=== PATIENT | male | born 1980 | race Caucasian/White ===

== ENCOUNTER 2023-05-31 11:50 | Outpatient (AMB) | payer BC, MEDICARE, SELFPAY ==
--- NOTE | 2023-05-31 11:53 | A.OFFVIS_ITS ---
Intake Vital Signs 05/31/23 11:57 Height 6 ft 2 in Weight 220 lb BMI 28.2 Intake Visit Reasons: N/P left hip pain/ medication refill Intake Note: Brooks is a 43 year old male who presents today with spouse Becki as a new patient with complaints of left hip pain and left arm contracture. He was previously recieving botox injections but these were much too painful so they discontinued this. However he has been taking Tizanidine and dantrolene. He has found the dantrolene to be very helpful. Hx of left hip surgery, there was a screw placed in the head of the femur as it detatched as a child. Allergies No Known Allergies Allergy (Verified 05/31/23 11:59) HPI HPI Comments History of Present Illness Details This is a patient I have seen under [facility], last available note dated 03/24/2022. History of stroke 9 years ago with resulting right hemiparesis, spasticity and aphasia. Had multiple craniotomies after. Developed seizures 6 months after last craniotomy. Being managed by a [facility] for Neurology for seizures. No seizures reported since then. Expressive aphasia. Also history of DVT about 2 years ago right lower extremity, reportedly evaluate d at [facility], but not put on long-term blood thinners. There was a question of history of gout as well. He had complaints of left hip/thigh/calf pain. Past history of left hip surgery when he was 10 years old. Hip x-rays done reported screws were in place, old healed fracture. Lumbar x-ray showed decreased disc spaces. Patient did not want any injection. I believe referred him to Orthopedics at that time. He was also maintained on dantrolene 25 mg b.i.d. and tizanidine 4 mg t.i.d. and 8 mg q.h.s. for pain and spasticity. They are here today requesting for refills. Denies side effects. Last LFTs checked 2021 were within normal. Expressive aphasia. Diabetic. Here with . No folow up with [facility] since I left. Last time taking medications Tizanidine (was only taking 4mg in AM and 8mg qhs) was April when he ran out. Still has Dantolene. No side effects. Last March, PCP checked liver and kidney function and within normal. It was helping the right arm from the spasticity. He used to get Botox which was too painful for him, therefore switched to medication instead. Left hip pain - shows me lateral side, denies groin pain, denies back pain. Per , they were told that ball of hip popped off while growing up , 12 years old, and that is why the surgery was for. [facility] Medical History (Updated 05/31/23 @ 12:48 by Kamryn Gibson MD) Chronic hip pain Spastic hemiparesis affecting dominant side Surgical History (Updated 05/31/23 @ 12:02 by Nelida David CMA) H/O craniotomy Review of Systems Const All systems reviewed & are unremarkable except as noted in HPI and below Physical Exam Vital Signs: BMI result Body Mass Index 28.2 Patient awake, alert, nods to answer questions. He has expressive aphasia. He follows commands consistently. Right upper extremity 2/5 proximal, 1/5 distal. Igor 3 on right finger flexors and 2 for the rest of the right upper extremity. Negative Carolyn sign. Tender left lateral hip near GT. No signs of redness or swelling on previous surgical scar. No groin tenderness. No SI joint tenderness. Results Reviewed Results Reviewed: I reviewed records from the following: Notes from [facility] Assessment & Plan Assessment & Plan (1) Spastic hemiparesis affecting dominant side: Code(s): G81.10 - Spastic hemiplegia affecting unspecified side Plan: Reasonable to continue him on oral anti spasticity medications. I do discouraged continuation of dantrolene because of hepatotoxic side effects. We agreed to put him back on tizanidine, 4 mg b.i.d. and 8 mg q.h.s.. We agreed on gradually weaning him off dantrolene, down to 25 mg daily for 2 weeks and then 25 mg every other day until done. Giving him only 30 capsules of dantrolene. He does not want any injections including Botox for right upper extremity. Considering everything, he still has functional gait. (2) Chronic hip pain: Code(s): M25.559 - Pain in unspecified hip; G89.29 - Other chronic pain Qualifiers: Laterality: left Qualified Code(s): M25.552 - Pain in left hip; G89.29 - Other chronic pain Plan: Will repeat x-rays today. I can discuss with my orthopedic colleagues whether there is any surgical option for him. Although patient is adamant about not wanting any surgery at all. It is understandable since the left side is his good side and is probably not going to do well in rehab post any surgery at all. He can try Lidoderm patches for pain management. Plan Assessment and plan discussed with patient, and patient was agreeable. All questions were answered thoroughly. Follow-up 3-4 months. Kamryn Gibson MD, CHENG Board Certified, [place] Board of Physical Medicine and Rehabilitation (ABPMR) Board Certified, [place] Board of Electrodiagnostic Medicine (ABEM) Orders: Orders XR hip LT min 2V Today G89.29 - Other chronic pain, M25.559 - Pain in unspecified hip Medications: New tizanidine 4mg twice a day and 8mg at night (total of 4 tablet per day) 4 mg PO BEDTIME PRN 120 tabs 3RF muscle spasticity MDD 16mg G81.10 - Spastic hemiplegia affecting unspecified side dantrolene 25mg daily for 2 weeks, wean down to 25mg every other day until done 25 mg PO DAILY 28 days 28 caps 0RF spasticity MDD 25mg G81.10 - Spastic hemiplegia affecting unspecified side lidocaine 5% (Lidoderm) leave on most painful area for up to 12 hrs on, 12 hours off, 1-3 patches at a time 3 patches topical DAILY 30 ea 3RF Coding Level of Care Code Est Pt Level 4 (33824) Diagnoses Spastic hemiparesis affecting dominant side G81.10 Chronic left hip pain M25.552; G89.29 Laterality: left Comment This is a new patient in our the office but I have seen the patient in [place]
[2023-05-31 11:57] VITALS: BMI 28.2
== END 2023-05-31 13:14 | disposition home or self-care (01) ==
PROVIDERS: Visit Provider Physical Medicine & Rehabilitation
DX: G81.10 Spastic hemiplegia affecting unspecified side (principal); M25.552 Pain in left hip; G89.29 Other chronic pain
CPT/HCPCS: 99214

== ENCOUNTER 2023-05-31 11:50 | Outpatient (REF) | payer BC, MEDICARE, SELFPAY ==
--- NOTE | ~2023-05-31 | XR_ITS ---
EXAMINATION: XR HIP, LEFT CLINICAL INFORMATION: Left hip pain. Had surgery at least 10 years ago. COMPARISON: 12/30/2021. TECHNIQUE: Two views of the left hip. FINDINGS: Redemonstration of a single cannulated screw traversing the left femoral neck hardware appears intact. Redemonstration of cortical irregularity of the femoral neck characteristic of old healed fracture. The left femoral head is well seated within the acetabulum. Redemonstration of surgical clip overlying the medial aspect of the acetabulum. Mild degenerative changes left hip with mild joint space narrowing and lateral acetabular hypertrophic change. XR/XR hip LT min 2V IMPRESSION: Postsurgical changes left hip with mild degenerative changes. Additional imaging with CT scan or MRI should be considered for better visualization as these modalities are much more sensitive for detection of fracture or other underlying pathology.
== END 2023-05-31 11:51 | disposition home or self-care (01) ==
LOC: HO.HOSX 11:50
PROVIDERS: Visit Provider Physical Medicine & Rehabilitation
DX: M25.552 Pain in left hip (principal); G81.11 Spastic hemiplegia affecting right dominant side; G89.29 Other chronic pain
CPT/HCPCS: 73502

== ENCOUNTER 2023-08-01 10:10 | Outpatient (AMB) | payer BC, MEDICARE, SELFPAY ==
--- NOTE | 2023-08-01 10:17 | A.OFFVIS_ITS ---
Intake Vital Signs 08/01/23 10:31 Height 6 ft 2 in Weight 220 lb BMI 28.2 Intake Visit Reasons: OV- left hip pain-Follow up Intake Note: Brooks 43 yr old male p resents today for a follow up visit for his left hip pain. Patient reports he is better today however he has not tried the lido patches due to insurance inconveniences. Allergies No Known Allergies Allergy (Verified 08/01/23 10:25) HPI HPI Comments History of Present Illness Details This is a patient I have seen under [facility], last available note dated 03/24/2022. History of stroke 9 years ago with resulting right hemiparesis, spasticity and aphasia. Had multiple craniotomies after. Developed seizures 6 months after last craniotomy. Being managed by a her for Neurology for seizures. No seizures reported since then. Expressive aphasia. Also history of DVT about 2 years ago right lower extremity, reportedly evaluated at [facility], but not put on long-term blood thinners. There was a question of history of gout as well. He had complaints of left hip/thigh/calf pain. Past history of left hip surgery when he was 10 years old. Hip x-rays done reported screws were in place, old healed fracture. Lumbar x-ray showed decreased disc spaces. Patient did not want any injection. I believe referred him to Orthopedics at that time. He was also maintained on dantrolene 25 mg b.i.d. and tizanidine 4 mg t.i.d. and 8 mg q.h.s. for pain and spasticity. They are here today requesting for refills. Denies side effects. Last LFTs checked 2021 were within normal. Expressive aphasia. Diabetic. Here with . No folow up with [facility] since I left. Left hip pain - shows me lateral side, denies groin pain, denies back pain. Per , they were told that ball of hip popped off while growing up , 12 years old, and that is why the surgery was for. Since I saw him last here in [place], he has changed medication as directed to tizanidine only, no more dantrolene. Says feel better on right tightness. Left hip is about the same. They were not able to get lidoderm patch from pharmacy for possibly prior auth issue. [facility] Medical History (Updated 05/31/23 @ 12:48 by Kamryn Gibson MD) Chronic hip pain Spastic hemiparesis affecting dominant side Surgical History (Updated 05/31/23 @ 12:02 by Nelida David CMA) H/O craniotomy Physical Exam Vital Signs: BMI result Body Mass Index 28.2 Patient awake, alert, nods to answer questions. He has expressive aphasia. He follows commands consistently. Right upper extremity 2/5 proximal, 1/5 distal. Igor 3 on right finger flexors and 2 for the rest of the right upper extremity. Negative Carolyn sign. Tender left lateral hip near GT. No signs of redness or swelling on previous surgical scar. No groin tenderness. No SI joint tenderness. On gait, tight on knee flexion and dorsiflexion. Results Reviewed Results Reviewed: Date of Service: 05/31/23 Procedure(s): XR hip LT min 2V Accession Number(s): [id number] cc: Physician,Unknown ; Kamryn Bobo~ EXAMINATION: XR HIP, LEFT CLINICAL INFORMATION: Left hip pain. Had surgery at least 10 years ago. COMPARISON: 12/30/2021. TECHNIQUE: Two views of the left hip. FINDINGS: Redemonstration of a single cannulated screw traversing the left femoral neck hardware appears intact. Redemonstration of cortical irregularity of the femoral neck characteristic of old healed fracture. The left femoral head is well seated within the acetabulum. Redemonstration of surgical clip overlying the medial aspect of the acetabulum. Mild degenerative changes left hip with mild joint space narrowing and lateral acetabular hypertrophic change. XR/XR hip LT min 2V IMPRESSION: Postsurgical changes left hip with mild degenerative changes. Additional imaging with CT scan or MRI should be considered for better visualization as these modalities are much more sensitive for detection of fracture or other underlying pathology. Assessment & Plan Assessment & Plan (1) Spastic hemiparesis affecting dominant side: Code(s): G81.10 - Spastic hemiplegia affecting unspecified side Plan: He has discontinued safely from dantrolene. Now on tizanidine 4mg BID and 8mg qhs without side effects. Says better than last time for stiffness. Still quite spastic though. asked about compounded topicals. We can trial combination of baclofen and cyclobenzarine topical. Prescription will be send to compounding pharmacy. He does not want any injections including Botox for right upper extremity. Considering everything, he still has functional gait. (2) Chronic hip pain: Code(s): M25.559 - Pain in unspecified hip; G89.29 - Other chronic pain Qualifiers: Laterality: left Qualified Code(s): M25.552 - Pain in left hip; G89.29 - Other chronic pain Plan: We looked at films together. Saw the screw is in place. There is no hip joint loss but smooth articular surface in my opinion. He says pain is about the same as last visit. thinks because he puts so much pressure on this good side . Brooks is very adamant about not having further surgery or even further imaging. We did agree, in lieu of MRI or CT, that we will do serial plain xrays every 6 months to see if any movement or change. It was hard to convince Devonte but he agrees to do xray on next follow up in 4 months. Lidoderm patch needs prior auth and we will work on this. Hopefully we can get this approved. Plan Assessment and plan discussed with patient, and patient was agreeable. All questions were answered thoroughly. Follow-up 4 months. Kamryn Gibson MD, CHENG Board Certified, [place] Board of Physical Medicine and Rehabilitation (ABPMR) Board Certified, [place] Board of Electrodiagnostic Medicine (ABEM) Coding Level of Care Code Est Pt Level 4 (71147) Diagnoses Spastic hemiparesis affecting dominant side G81.10 Chronic left hip pain M25.552; G89.29 Laterality: left
[2023-08-01 10:31] VITALS: BMI 28.2
== END 2023-08-01 10:57 | disposition home or self-care (01) ==
PROVIDERS: Visit Provider Physical Medicine & Rehabilitation
DX: G81.10 Spastic hemiplegia affecting unspecified side (principal); M25.552 Pain in left hip; G89.29 Other chronic pain
CPT/HCPCS: 99214

== ENCOUNTER → 2023-08-01 10:10 | Outpatient (BNVA) | payer BC, MEDICARE, SELFPAY | PROVIDERS: Visit Provider Physical Medicine & Rehabilitation ==

== ENCOUNTER 2024-10-30 08:33 | Outpatient (REF) | payer OTHER, MEDICARE, SELFPAY ==
--- NOTE | ~2024-10-30 | XR_ITS ---
EXAMINATION: XR HIP 2 OR MORE VIEWS LEFT HISTORY: M16.12 - Unilateral primary osteoarthritis, left hip COMPARISON: Comparison is made with the prior examination dated 05/31/2023. FINDINGS: Two views of the left hip are submitted. Osseous mineralization is normal. A single screw is again noted and femoral neck. There is no acute fracture or dislocation. Minimal joint space narrowing is unchanged. The soft tissues are unremarkable. XR/XR hip LT min 2V IMPRESSION: Minimal joint space narrowing. Electronically signed by: Jae Laurent MD 10/30/2024 03:17 PM EDT
== END 2024-10-30 08:34 | disposition home or self-care (01) ==
LOC: HO.HOSX 08:33
PROVIDERS: Visit Provider Physical Medicine & Rehabilitation
DX: M16.12 Unilateral primary osteoarthritis, left hip (principal); G89.29 Other chronic pain; G81.11 Spastic hemiplegia affecting right dominant side
CPT/HCPCS: 73502

== ENCOUNTER 2024-10-30 08:33 | Outpatient (AMB) | payer OTHER, MEDICARE, SELFPAY ==
--- NOTE | 2024-10-30 08:36 | A.OFFVIS_ITS ---
Vital Signs 10/30/24 08:59 Height 6 ft 2 in Weight 207 lb BMI 26.6 Intake Visit Reasons: O/V rt side Spastic hemiparesis Intake Note: Brooks is a 44 year old male who presents today with his for a follow up of his right side spastic hemiparesis and left hip pain. States since last visit he has tried aspen cream but did not feel much difference. states he is cur rently slowly weaning off his divaloproex and will be starting lamotrigine (managed by [facility], for seizure prophylaxis). EEG did not show seizure activity. New PCP Dr. Cooley, [facility]. Allergies No Known Allergies Allergy (Verified 10/30/24 08:58) HPI Comments Details: This is a patient I have seen under [facility], last available note dated 03/24/2022. History of stroke 9 years ago with resulting right hemiparesis, spasticity and aphasia. Had multiple craniotomies after. Developed seizures 6 months after last craniotomy. Being managed by a her for Neurology for seizures. No seizures reported since then. Expressive aphasia. Also history of DVT about 2 years ago right lower extremity, reportedly evaluated at [facility], but not put on long-term blood thinners. He had complaints of left hip/thigh/calf pain. Past history of left hip surgery when he was 10 years old. Hip x-rays done reported screws were in place, old healed fracture. Lumbar x-ray showed decreased disc spaces. Patient did not want any injection. Diabetic. Here with . Last seen 08/01/2023. Devonte has not had any hospitalizations, infections or falls since then. Continues to have tightness in right upper extremity but still does not want any injections such as Botox. Continues on tizanidine 4 mg b.i.d. and 8 mg at dinnertime. They tell me that her for neurology has adjusted/change medication and then EEG, see above. PCP is [facility] [place]. Left hip pain, takes meloxicam twice a week if ever. [facility] Medical History (Updated 05/31/23 @ 12:48 by Kamryn Gibson MD) Chronic hip pain Spastic hemiparesis affecting dominant side Surgical History H/O craniotomy Social History (Updated 10/30/24 @ 08:59 by CHAITANYA Garcia) Current occupation: disabled Physical Exam Vital Signs: BMI result Body Mass Index 26.6 Patient awake, alert, nods to answer questions. He has expressive aphasia. He follows commands consistently. Right upper extremity 2/5 proximal, 1/5 distal. Igor 3 on right finger flexors, elbow flexion and pronation. Negative Carolyn sign. On gait, tight on knee flexion and dorsiflexion. Results Reviewed Results Reviewed: Date of Service: 05/31/23 Procedure(s): XR hip LT min 2V Accession Number(s): [id number] cc: Physician,Unknown ; Kamryn Aguirre EXAMINATION: XR HIP, LEFT CLINICAL INFORMATION: Left hip pain. Had surgery at least 10 years ago. COMPARISON: 12/30/2021. TECHNIQUE: Two views of the left hip. FINDINGS: Redemonstration of a single cannulated screw traversing the left femoral neck hardware appears intact. Redemonstration of cortical irregularity of the femoral neck characteristic of old healed fracture. The left femoral head is well seated within the acetabulum. Redemonstration of surgical clip overlying the medial aspect of the acetabulum. Mild degenerative changes left hip with mild joint space narrowing and lateral acetabular hypertrophic change. XR/XR hip LT min 2V IMPRESSION: Postsurgical changes left hip with mild degenerative changes. Additional imaging with CT scan or MRI should be considered for better visualization as these modalities are much more sensitive for detection of fracture or other underlying pathology. Assessment & Plan Assessment & Plan (1) Spastic hemiparesis affecting dominant side: Code(s): G81.10 - Spastic hemiplegia affecting unspecified side Category: Medical (2) Chronic hip pain: Code(s): M25.559 - Pain in unspecified hip; G89.29 - Other chronic pain Category: Medical Qualifiers: Laterality: left Qualified Code(s): M25.552 - Pain in left hip; G89.29 - Other chronic pain Plan We agreed on increasing tizanidine gradually, 8 mg at breakfast, 4 mg at lunch, 8 mg after dinner. Refills given with enough to further increase to 8 mg t.i.d. Side effects and precautions discussed. Repeat left hip x-ray today. If there is any movement of the hardware/screw, I will refer him to Dr. Mena. Otherwise, can not do steroid injection because of screw and patient does not want any injections anyway. He will continue to follow up with [facility] PCP and [facility]. Assessment and plan discussed with patient, and patient was agreeable. All questions were answered thoroughly. Follow-up 6 months. Kamryn Gibson MD, CHENG Board Certified, [place] Board [employer] Physical Medicine and Rehabilitation (ABPMR) Board Certified, [place] Board [employer] Electrodiagnostic Medicine (ABEM) Orders: Orders XR hip LT min 2V Today M16.12 - Unilateral primary osteoarthritis, left hip Medications: New meloxicam 15 mg PO DAILY 90 tabs 0RF tizanidine 8 mg (2 x 4 mg) PO TID 120 tabs 5RF muscle spasticity Coding Level of Care Code Est Pt Level 4 (45169) Diagnoses Spastic hemiparesis affecting dominant side G81.10 Chronic left hip pain M25.552; G89.29 Laterality: left
[2024-10-30 08:59] VITALS: BMI 26.6
== END 2024-10-30 09:43 | disposition home or self-care (01) ==
LOC: HO.HOS 08:34
PROVIDERS: Visit Provider Physical Medicine & Rehabilitation
DX: G81.10 Spastic hemiplegia affecting unspecified side (principal); M25.552 Pain in left hip; G89.29 Other chronic pain
CPT/HCPCS: 99214

== ENCOUNTER → 2024-10-30 09:25 | Outpatient (BNV) | payer OTHER, MEDICARE, SELFPAY | PROVIDERS: Visit Provider Radiology Diagnostic Radiology | DX: M16.12 Unilateral primary osteoarthritis, left hip (principal) | CPT/HCPCS: 73502 ==

== ENCOUNTER 2025-04-30 08:51 | Outpatient (AMB) | payer OTHER, MEDICARE, SELFPAY ==
--- NOTE | 2025-04-30 08:57 | MHC.OFFVIS ---
Vital Signs 04/30/25 09:02 Height 6 ft 2 in Weight 205 lb BMI 26.3 Intake Visit Reasons: O/V rt side Spastic hemiparesis-6 Month follow up Intake Note: Brooks is a 45 year old male who presents today as a six month follow up of his right side Spastic hemiparesis. At last visit 10/30/24 we discussed to continue to follow up with [facility] PCP and [facility]. At today's visit patient's states that on 04/24/25 he had a fall in the house which caused dental trauma and has a wound on his upper lip. Patient's states that in the past two months he has had multiple falls. He states that he try's to do as much walking as he can. Patient's states that his [facility] PCP wants him to get a MRI but patient refused treatment, he is now getting dizzy spells. Allergies No Known Allergies Allergy (Verified 04/30/25 09:03) Medication List - Last Reconciled 04/30/25 by Kamryn Gibson MD amlodipine 10 mg PO QAM atorvastatin 80 mg PO DAILY fluoxetine 40 mg PO DAILY lamotrigine 150 mg PO BID meloxicam 15 mg PO DAILY metformin ER 500 mg PO BID tizanidine 8 mg (2 x 4 mg) PO TID HPI Comments Details: This is a patient I have seen under [facility], last available note dated 03/24/2022. History of stroke 9 years ago with resulting right hemiparesis, spasticity and aphasia. Had multiple craniotomies after. Developed seizures 6 months after last craniotomy. Being managed by [facility] for seizures. No seizures reported since then. Expressive aphasia. Also history of DVT right lower extremity, reportedly evaluated at [facility], but not put on long-term blood thinners. He had complaints of left hip/thigh/calf pain. Past history of left hip surgery when he was 10 years old. Hip x-rays done reported screws were in place, old healed fracture. Lumbar x-ray showed decreased disc spaces. Patient did not want any injection. Diabetic. Here with . Continues to have tightness in right upper extremity but still does not want any injections such as Botox. He fell a few days ago, as above. No hip injury. He has fallen a few times in few months. No seizures but is concerned about TIAs. He saw PCP yesterday, but Brooks refuses imaging. mentions muscle atrophy, legs much thinner. He has been smoking marijuana, and thinks he's been dizzy and falling more. Brooks shrugs this off though. Still points to left hip as main source of any pain, he says little . He takes Meloxicam as needed. Right leg looks less tight as before. Takes Meloxicam as needed. Refused TID of tizanidine, so only taking 8mg BID. [facility] Medical History (Updated 05/31/23 @ 12:48 by Kamryn Gibson MD) Chronic hip pain Spastic hemiparesis affecting dominant side Surgical History H/O craniotomy Social History (Updated 10/30/24 @ 08:59 by CHAITANYA Garcia) Current occupation: disabled Physical Exam Vital Signs: BMI result Body Mass Index 26.3 Patient awake, alert, nods to answer questions. He has expressive aphasia. But I can understand his words much better today. I can range right elbow to 180 degrees, but still Igor 2. Right wrist and fingers are much more tightly flexed. Igor 3 at least. He can straighten out his right leg to full 180 degrees knee extension and can dorsiflex as well. Denied tenderness over left lateral hip or buttocks area. Hemiplegic gait, right-sided. Assessment & Plan Assessment & Plan (1) Spastic hemiparesis affecting dominant side: Code(s): G81.10 - Spastic hemiplegia affecting unspecified side Category: Medical (2) Chronic hip pain: Code(s): M25.559 - Pain in unspecified hip; G89.29 - Other chronic pain Category: Medical Qualifiers: Laterality: left Qualified Code(s): M25.552 - Pain in left hip; G89.29 - Other chronic pain Plan He has been smoking marijuana and I think that has helped with spasticity, but probably has made him more prone to falls. We talked about precautions. Devonte refuses any imaging for left hip today. As he is not complaining of hip pain, then we will defer any x-rays for next visit. He has also been taking only 8 mg b.i.d. of tizanidine. Refills sent. He has been taking meloxicam as needed. Refills sent. Discussed side effects and precautions for both medications. Offered referral to home health nursing and PT, but patient refuses. He will continue to follow up with [facility], NS seen PCP yesterday. Assessment and plan discussed with patient, and patient was agreeable. All questions were answered thoroughly. Follow up 6 months. Kamryn Gibson MD, CHENG Board Certified, [place] Board of Physical Medicine and Rehabilitation (ABPMR) Board Certified, [place] Board of Electrodiagnostic Medicine (ABEM) Medications: Refilled tizanidine 8 mg (2 x 4 mg) PO TID 120 tabs 5RF muscle spasticity meloxicam 15 mg PO DAILY 90 tabs 0RF Coding Level of Care Code Est Pt Level 4 (72572) Complex EM visit Add On G2211 Diagnoses Spastic hemiparesis affecting dominant side G81.10 Chronic left hip pain M25.552; G89.29 Laterality: left
[2025-04-30 09:02] VITALS: BMI 26.3
--- OUTSIDE RECORDS SUMMARY | 2025-04-30 10:08 | XMS_ITS | Clinical Summary ---
Author Organization [facility] Address [address] [facility] [address] [place] [address] Phone Care Team Providers Care Director Funds Development Name Role Phone Dipti Almonte MD Primary Care Provider + [phone] Allergies No known active allergies Medications amLODIPine (NORVASC) 10 MG tablet Take 10 mg by mouth 02/26/2023 Active aspirin (ST KAYLEEN) 81 MG EC tablet Take 81 mg by mouth in the morning. Active atorvastatin (LIPITOR) 80 MG tablet Take 80 mg by mouth 1 (one) time each day 01/01/2023 Active cholecalciferol (VITAMIN D-3) 125 MCG (5000 UT) capsule Take 2,000 Units by mouth in the morning. Active colchicine 0.6 MG tablet 03/06/2023 Active dantrolene (DANTRIUM) 25 MG capsule 02/25/2023 Active divalproex (DEPAKOTE) 250 MG EC tablet 02/02/2023 Active FLUoxetine (PROzac) 40 MG capsule Take 40 mg by mouth 1 (one) time each day 01/31/2023 Active meloxicam (MOBIC) 15 MG tablet 03/06/2023 Active metFORMIN XR (GLUCOPHAGE-XR) 500 MG 24 hr tablet 03/06/2023 Active tiZANidine (ZANAFLEX) 4 MG tablet 02/25/2023 Active Active Problems Problem Noted Date Diagnosed Date Prehypertension 03/07/2023 03/07/2023 Type 2 diabetes mellitus 03/07/2023 023 Resolved Problems Problem Noted Date Diagnosed Date Resolved Date Allergic rhinitis 03/07/2023 03/07/2023 03/07/2023 Aphasia 03/07/2023 03/07/202303/07/2023 Clonic epileptic seizure 03/07/2023 History of embolic stroke with deficits 03/07/2023 0 03/07/2023 03/07/2023 Impaired fasting glucose 03/07/2023 03/07/2023 Nocturnal cough 03/07/2023 03/07/2023 03/07/2023 Obese class I 03/07/2023 03/07/2023 03/07/2023 Uric acid level above reference range 03/07/202303/07/2023 Hemiparesis as late effect o f cerebrovascular accident 04/25/2018 03/07/2023 03/07/2023 Occlusion of cerebral artery with stroke 03/01/2015 03/07/2023 03/07/2023 Spastic hemiplegia 12/24/2014 03/07/2023 Immunizations Immunization Administration Dates Next Due Influenza, Unspecified 05/31/2020 Tdap 05/30/2013 Family History Medical History Relation Comments Diabetes Father Heart disease Father Kidney disease Father Diabetes Mother Relation Status Comments Father Mother Social History Tobacco Use Types Packs/Day Years Used Date Smoking Tobacco: Every Day Cigarettes Passive Smoke Exposure: Never Smokeless Tobacco: Never Tobacco Cessation:Ready to Q uit: No; Counseling Given: No Alcohol Use Standard Drinks/Week Comments Yes 0 (1 standard drink = 0.6 oz pur e alcohol) Sex and Gender Information Value Date Recorded Sex Assigned at Not on file Legal Sex Male 3:28 PM EDT Gender Identity Not on file Sexual Orientation Not on file Last Filed Vital Signs Vital Sign Reading Time Taken Comments Blood Pressure 123/88 03/07/2023 1:24 PM EDT Pulse 66 03/07/2023 1:24 PM EDT Temperature - - Respiratory Rate - - Oxygen Saturation - - Inhaled Oxygen Concentration - - Weight 100 kg (221 lb) 03/07/2023 1:24 PM EDT Height - - Body Mass Index - - Plan of Treatment Health Maintenance Due Date Last Done Comments Hepatitis B Vaccine (1 of 3 - 19+ 3-dose series) 02/20 Pneumococcal Vaccine: Peds ( 0 to 5 Years) and At-Risk Patients (6 to 49 Years) (1 of 2 - PCV) 02/20/1999 Diabetes: Hemoglobin A1C 03/07/2023 Diabetes: Ophthalmology Exam 03/07/2023 Diabetes: Pedal Pulse Checked 03/07/2023 Diabetes: Sensory Foot Exam 03/07/2023 Diabetes: Visual Foot Exam 03/07/2023 Influenza Vaccine (#1) 2025 05/31/2020 Insurance [facility] [place] [facility] Medicare Medicaid [place] Care Teams Director Funds Development Relationship Specialty Start Date End Date Dipti Almonte MD [address] [place] [address] PCP - General Internal Medicine 03/07/23
--- OUTSIDE RECORDS SUMMARY | 2025-04-30 10:08 | XMS_ITS ---
Author Name [facility] Organization Unknown History of Medication Use Medication Directions Dispensed Refills Start Date End Date Stat us lamoTRIgine (LaMICtal) 25 MG tablet Week 1 & 2 1 tab daily, Week 3 & 4 1 tab twice daily. Week 5 & 6 1 tab in the am & 2 tabs in pm, Week 7 & 8 2 tabs in the am & pm. Week 9 & 10 2 tabs in the am and 3 tabs in the pm. Week 11 & 12 3 tabs am and pm. Week 13 & 14 3 tabs in the am and 4 tabs in the pm. Week 15 & 16 4 tabs twice daily. We 09/03/2024 active colchicine (COLCRYS) 0.6 mg tablet Take 1 tablet (0.6 mg total) by mouth. 07/25/2024 active amLODIPine (NORVASC) 10 MG tablet Take 1 tablet (10 mg total) by mouth. 02/26/2023 active dantrolene (DANTRIUM) 25 MG capsule TAKE 1 CAPSULE(25 MG) BY MOUTH TWICE DAILY 06/23/2022 07/31/2024 active tiZANidine (ZANAFLEX) 4 MG tablet TAKE 1 TABLET BY MOUTH EVERY MORNING AND 2 TABLETS BY MOUTH EVERY NIGHT AT BEDTIME 03/24/2022 active divalproex (DEPAKOTE) [address] TAKE 3 TABLETS(750 MG) BY MOUTH TWICE DAILY 02/02/2022 07/31/2024 active aspirin enteric coated (ECOTRIN LOW STRENGTH) 81 MG EC tablet Take 81 mg by mouth daily. active atorvastatin (LIPITOR) 80 MG tablet Take 1 tablet (80 mg total) by mouth daily. active Cholecalciferol (VITAMIN D3) 5000 units Cap Take 2,000 Units by mouth daily. active FLUoxetine (PROzac) 40 MG capsule Take 40 mg by mouth daily. active metFORMIN (GLUCOPHAGE) 500 MG tablet Take 1 tablet (500 mg total) by mouth every morning with breakfast. 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 08/28/2024 Ambulatory Unspecified convulsions Unspecified convulsions [facility] 08/26/2024 Ambulatory Unspecified convulsions Unspecified convulsions [facility] 07/31/2024 Ambulatory Unspecified convulsions Unspecified convulsions [facility] 07/03/2023 Ambulatory Unspecified convulsions [facility] 06/13/2022 Ambulatory Pain in unspecif ied hip [facility] 03/24/2022 Ambulatory Cerebrovascular Accident [facility] 12/30/2021 Ambulatory Hemiplegia and hemiparesis following cerebral infarction affecting right dominant side [facility] 07/06/2021 Care Team Organization Name Specialty Phone Email Start Date End Da te [facility]BLES Primary [facility] 06/13/2022 10/30/19 [facility] 07/06/2021 06/13/20 [facility] 05/05/2021 03/31/2024
== END 2025-04-30 09:32 | disposition home or self-care (01) ==
PROVIDERS: Visit Provider Physical Medicine & Rehabilitation
DX: G81.10 Spastic hemiplegia affecting unspecified side (principal); M25.552 Pain in left hip; G89.29 Other chronic pain
CPT/HCPCS: 99214